=== PATIENT | male | born 1960 | race Hispanic/Latino ===

== ENCOUNTER 2017-10-01 20:07 | Emergency (ER) | payer MEDICAID, OTHER ==
[~2017-10-01] VITALS: Ht 172.7 cm; Wt 77.1 kg
[~2017-10-01 20:07] MED LIST: BACTRIM-DS1 EA ORAL; IBUPROFEN600 MG ORAL; KEFLEX500 MG ORAL; NKM; PEPCID40 MG PO; ZOFRAN ODT4 MG ORAL
[2017-10-01 20:20] VITALS: BP 108/68
[2017-10-01] MEDS ORDERED: Albuterol/Ipratropium 3ml neb HHN ONE (20:30)
--- NOTE | 2017-10-01 21:21 | Diagnostic Imaging Report ---
EXAM: XR Chest, 1 View CLINICAL HISTORY: SOB TECHNIQUE: Frontal view of the chest. COMPARISON: No relevant prior studies available. FINDINGS: Lungs: Peribronchial thickening without infiltrate. Pleural space: Unremarkable. No pneumothorax. Heart: Unremarkable. No cardiomegaly. Mediastinum: Unremarkable. Bones/joints: Unremarkable. IMPRESSION: Peribronchial thickening without infiltrate.
[2017-10-01] MEDS ORDERED: BACTRIM DS TAB1 EAC1 ORAL (22:28)
[2017-10-01] MEDS ORDERED: ALBUTEROL SULF8.5 GM INH (22:28)
[2017-10-01 23:00] VITALS: BP 108/68
--- NOTE | 2017-10-02 00:27 | Emergency Room Report ---
History of Present Illness General Chief Complaint: Flu Like Symptoms Source: Patient, Medical Record Present Illness HPI Patient is a 57-year-old male who presented after increased cough and difficulty breathing. Patient gradual onset of symptoms. Patient reports having the prior history of COPD as well as HIV. He was noted to have increased the difficulty with cough. He reports having had been taking his medications. He notes his CD4 count to be normal. He reports having some continued detectable viral load.The patient denies any hemoptysis or leg pain or swelling. He denies severe shortness of breath He reports smoking approximate one pack of cigarette per month. Allergies: Coded Allergies: No Known Allergies (Verified , 09/10/10) Patient History Past Medical History: see triage record Reviewed Nursing Documentation: PMH: Agreed; PSxH: Agreed Nursing Documentation-PMH Hx Cardiac Problems: Yes Hx Hypertension: Yes Hx Asthma: Yes Hx COPD: No - HIV Hx Diabetes: Yes - hiv, hep b Hx Seizures: Yes Review of Systems All Other Systems: negative except mentioned in HPI Physical Exam Vital Signs Date Time Temp Pulse Resp B/P (MAP) Pulse Ox O2 Delivery O2 Flow Rate FiO2 10/01/17 20:07 98.1 72 18 101/68 98 Room Air 98.1 10/01/17 20:35 21 General Appearance: well appearing, no apparent distress, alert, GCS 15 Head: normocephalic, atraumatic ENT: hearing grossly normal, normal voice Neck: full range of motion, supple Respiratory: no respiratory distress, speaking full sentences, wheezing, expiration Cardiovascular #1: normal peripheral pulses, regular rate, rhythm, no edema Gastrointestinal: normal inspection Musculoskeletal: normal inspection, no calf tenderness Neurologic: normal inspection, alert, oriented x3, responsive, normal gait Psychiatric: mood/affect normal Skin: no rash Medical Decision Making Diagnostic Impression: Primary Impression: Asthma exacerbation ER Course Patient presented for shortness of breath. Differential diagnosis included but was not limited to bronchitis, pneumonia, pulmonary embolism, pericarditis, asthma, foreign body. Because of complexity of patient's case laboratory testing and imaging studies were ordered. Chest x-ray one view interpreted by radiology showed the normal cardiac size with peribronchial cuffing. The patient was given breathing treatments with improvement of symptoms. I given the patient's HIV status and chest x-ray findings. Patient will be treated empirically pneumonia. Patient given prescription for Bactrim as well as albuterol.The patient is advised to follow up with primary care doctor in 1-2 days. Patient is advised to return if any worsening condition or if any changes in status that are concerning. This report is dictated with [employer] software which may occasionally lead to discrepancies related to use of this software. Last Vital Signs Date Time Temp Pulse Resp B/P (MAP) Pulse Ox O2 Delivery O2 Flow Rate FiO2 10/01/17 20:48 88 22 97 Room Air 21 10/01/17 20:07 98.1 101/68 98.1 Status: improved Disposition: HOME, SELF-CARE Condition: Stable Scripts Trimethoprim/Sulfamethoxazole 160/800* (BACTRIM DS TABLET*) 1 Each Tablet 1 TAB ORAL TWICE A DAY, #14 TAB Prov: Monty Zeng MD 10/01/17 Albuterol Sulfate* (ALBUTEROL SULFATE MDI*) 8.5 Gm Hfa.aer.ad 2 PUFF INH Q4H PRN for cough/wheezing, #1 EA 0 Refills Prov: Monty Zeng MD 10/01/17 Referrals: NON PHYSICIAN (PCP) Patient Instructions: Asthma, Adult Monty Zeng MD Oct 02, 2017 00:27
== END 2017-10-02 01:33 | disposition home or self-care (01) ==
LOC: EDBD 20:07 → EMR 23:39
DX: J45.901 Unspecified asthma with (acute) exacerbation (principal); I10 Essential (primary) hypertension; B19.10 Unspecified viral hepatitis B without hepatic coma; J44.9 Chronic obstructive pulmonary disease, unspecified; B20 Human immunodeficiency virus [HIV] disease
CPT/HCPCS: 71045; 94640; 94664; 99284; J7620